=== PATIENT | female | born 1980 | race Hispanic/Latino ===

== ENCOUNTER → 2021-10-29 | Outpatient (CLI) | payer BC | LOC: MAMMO 13:43 | PROVIDERS: ATTEND Obstetrics & Gynecology | DX: N63.20 Unspecified lump in the left breast, unspecified quadrant (principal) | CPT/HCPCS: 77066 ==

== ENCOUNTER → 2022-12-14 | Outpatient (CLI) | payer BC | LOC: MAMMO 10:37 | PROVIDERS: ATTEND Obstetrics & Gynecology | DX: Z12.31 Encounter for screening mammogram for malignant neoplasm of breast (principal) | CPT/HCPCS: 77067 ==